=== PATIENT | male | born 1955 | race Caucasian/White ===

== ENCOUNTER 2019-04-10 16:26 | Inpatient (IN) | payer BC ==
[~2019-04-10] VITALS: Ht 172.7 cm; Wt 76.5 kg
[~2019-04-10 16:26] MED LIST: ACET65TA PO; AFRI0.052; CIAL20TA PO; DETR4CAP OR; DIPH2.5L OR; HYDR25TA6 OR; K-TA10TA OR; K-TA10TA2 PO; LEVI20TA39 PO; LISI10TA4 OR; LOMO2.5T PO; LYRI300C OR; MELOPOW OR; NORT25CA2 OR; NORV5TAB PO; ONDA24TA2 OR; PHEN 25 OR; PROBCAP4 PO; PROM-190 PO; TYLETAB15 PO; TYLETAB3 OR; ZOFR4TAB16 PO
[2019-04-10 18:00] VITALS: BP 151/85
[2019-04-10] MEDS ORDERED: HYDROMORPHONE HCL 0.5 MG/ 0.5 ML SYRINGE (J1170 PER 1) IV PRN ×3 (19:15→23:30)
[2019-04-10] MEDS ORDERED: HYDROMORPHONE HCL 0.5 MG/ 0.5 ML SYRINGE (J1170 PER 1) IV ONE (19:30)
[2019-04-10] MEDS ORDERED: ONDANSETRON 4MG/2ML VIAL (J2405) IV PRN (19:45)
[2019-04-10] MEDS ORDERED: GLUCOSE 4 GM CHEW TABLET PO PRN (19:45)
[2019-04-10] MEDS ORDERED: GLUCAGON FOR INJ 1 MG VIAL (J1610) SC PRN (19:45)
[2019-04-10] MEDS ORDERED: DEXTROSE 50% 50 ML SYRINGE IV PRN (19:45)
[2019-04-10 20:23] LABS: HEMATOCRIT 44.6 % (42.0-52.0); HEMOGLOBIN 15.3 g/dl (13.5-17.5); MEAN CORPUSCULAR HEMOGLOBIN 31.2 pg (27.0-33.0); MEAN CORPUSCULAR HGB CONC 34.3 g/dl (32.0-36.5); PLATELET COUNT, AUTOMATED 190 10^3/uL (150-450); WHITE BLOOD COUNT 12.2 10^3/uL (4.0-10.0)
[2019-04-10] MEDS: D5W/0.9% SODIUM CHLORIDE 1,000 ML IV SCH (20:38)
[2019-04-10 20:45] LABS: ALBUMIN 3.7 GM/DL (3.2-5.2); BILIRUBIN,TOTAL 2.1 MG/DL (0.2-1.0); CREATININE FOR GFR 1.45 MG/DL (0.70-1.30); GLOMERULAR FILTRATION RATE 52.3 (>49); POTASSIUM SERUM 3.9 MEQ/L (3.5-5.1); TOTAL PROTEIN 8.2 GM/DL (6.4-8.2)
[2019-04-10] MEDS ORDERED: BISO5TAB5 PO (21:10)
[2019-04-10] MEDS ORDERED: GLIM4TAB PO (21:10)
[2019-04-10] MEDS ORDERED: POTA10TA14 PO (21:10)
[2019-04-10] MEDS ORDERED: PX N0.05 (21:10)
[2019-04-10] MEDS ORDERED: ATOR1TAB19 PO (21:10)
[2019-04-10] MEDS ORDERED: PROM25TA12 PO (21:10)
[2019-04-10] MEDS ORDERED: OMEP20CA3 PO (21:10)
[2019-04-10] MEDS ORDERED: JANU100T PO (21:10)
--- NOTE | 2019-04-10 21:44 | HPEPDOC ---
General Date of Admission April 10, 2019 at 18:00 Date of Service: April 10, 2019 Primary Care Physician: Tarun Armas MD Attending Physician: YURY SIFUENTES MD Chief Complaint The patient is a 63-year-old male admitted with a reason for visit of Bowel Obstruction. Source: Patient, Old records Exam Limitations: No limitations Timing/Duration: 24 hours Associated Symptoms: Nausea, Vomiting History of Present Illness Mr. Moseley is a 63-year-old male who presents to [facility] as a direct transfer from [facility] for small bowel obstruc tion. Patient states that he was in his usual state of health until yesterday when he was outside doing yard work when he was overcome by abdominal pain, abdominal distention with associated nausea and vomiting the contents of his stomach. He noted increased ostomy output of 15-20 liquid non-bloody stools and coupled with vomiting he experiences dehydration in the form of "charley horses" as well as jaw pain. He presented to [facility] and a CT abdomen and pelvis with contrast was obtained which revealed a small bowel obstruction. General surgery was consulted at [facility] and patient was accepted in transfer by the hospitalist team for further evaluation and treatment. Patient states that he has a history of Crohn's disease that was located in his rectum for which he underwent a ileostomy in 1976. He underwent a revision in 2014 due to recurrent monthly episodes of "blockages". Patient states that since the revision in 2014 he only has occasional "blockages" that require a 3-4 day stay at the hospital where he has bowel rest. He improves clinically at which time he is discharged. He follows with [facility] yearly and his most recent check-up was in May 2018. He reports headaches due to his dehydration, occasional episodes of food getting stuck in his throat for which he is evaluated at [facility], left sided sciatic nerve pain for which he gets nerve injections at [facility], some skin irritation around his ostomy for which he used Kenalog spray. Home Medications Scheduled Amlodipine Besylate (Norvasc) 5 Mg Tab, 5 MG PO DAILY, (Reported) Lactobacillus Acidophilus (Probiotic) 1 Cap Cap, 1 CAP PO DAILY, (Reported) Potassium Chloride (K-Tab ER) 10 Meq Tab, 10 MEQ PO BID, (Reported) Scheduled PRN Acetaminophen with Codeine (Tylenol with Codeine #4 Tablet) 1 Tab Tab, 1 TAB PO PRN PRN for PAIN, (Reported) Diphenoxylate HCl/Atropine (Lomotil 2.5-0.025 mg Tablet) 1 Tab Tab, 1 TAB PO PRN PRN for DIARRHEA, (Reported) Ondansetron HCl (Zofran) 4 Mg Tab, 4 MG PO PRN PRN for NAUSEA, (Reported) Oxymetazoline Hcl (Afrin Nasal [place]) 0.05 % Spr, 1 SPRAY NA PRN PRN for ALLERGIES, (Reported) EACH NOSTRIL Promethazine HCl (Promethazine HCl) 25 Mg Tab, 25 MG PO for NAUSEA, (Reported) Tadalafil (Cialis) 20 Mg Tab, 20 MG PO PRN PRN for ERECTILE DYSFUNCTION, (Reported) Miscellaneous Medications Vardenafil HCl (Levitra) 20 Mg Tab, 20 MG PO, (Reported) Allergies Coded Allergies: No Known Drug Allergies (Verified Allergy, Unknown, 04/10/19) Past Medical History Medical History 1. Crohn's disease status post ileostomy 2. GERD 3. Colitis 4. DM 5. HTN 6. Chronic back pain 7. MRSA negative 8. Diarrhea 9. Seasonal allergies 10. ED 11. Hypokalemia 12. DLP 13. Nausea Surgical History 1. Total colectomy with end ileostomy and lysis of adhesions 2. Tonsillectomy 3. Uvula and partial palate excision 4. Septoplasty 5. Left inferior turbinate debridement 6. Esophageal dilatations x3 Family History Father: , 76, Alzheimer's disease Mother: , 86, old age Siblings - Brothers: x2, 65, 55, alive and healthy - Sisters: x2, 72 (RA), 70, alive and healthy Social History * Smoker: former Smoker Alcohol: rarely Drugs: denies Patient is to his of 32 years. Together they have 4 adult children who are all alive and healthy. 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 He used to smoke as a teenage and through college, but quit in his 20s. He consumes alcohol occasionally, usually 2-4 beers or mixed drinks. He does not use illicit drugs. A-FIB/CHADSVASC A-FIB History Current/History of A-Fib/PAF?: No Current PO Anticoag Therapy: No Age/Risk Factor Scoring CHADSVASC: CHADSVASC Response (Comments) Value Age Risk Factor Age < 65 years old 0 Gender Risk Factor Male 0 Hx of CHF No 0 Hx of HTN Yes 1 Hx of Stroke/TIA/or VTE No 0 Hx of Diabetes Yes 1 Hx of Vascular Disease No 0 Total 2 Treatment Treatment ordered: NONE Review of Systems Constitutional: Denies: Chills, Fever, Malaise, Night Sweats, Weakness, Fatigue Eyes: Denies: Pain, Vision change ENT: Reports: Head Aches, Other Symptoms (occasional episodes of food getting stuck in throat); Denies: Dysphagia, Sinus Congestion, Post Nasal Drip Skin: Denies: Rash, Lesions, Jaundice, Bruising Pulmonary: Denies: Dyspnea, Cough, Pleuritic Chest Pain Cardiovascular: Denies: Chest Pain, Palpitations, Orthopnea, Paroxysmal Noc. Dyspnea, Edema Gastrointestinal: Reports: Nausea, Vomiting, Abdominal Pain, Diarrhea; Denies: Melena, Hematochezia Genitourinary: Denies: Dysuria, Frequency, Incontinence, Hematuria Hematologic: Denies: Bruising, Bleeding Excessively Endocrine: Denies: Polydipsia, Polyphagia Musculoskeletal: Denies: Neck Pain, Back Pain, Joint Pain, Muscle Pain Neurological: Denies: Weakness, Numbness Physical Examination General Exam: Positive: Alert, Cooperative, No Acute Distress Eye Exam: Positive: PERRLA, Conjunctiva & lids normal, EOMI; Negative: Sclera icteric, Ptosis ENT Exam: Positive: Atraumatic, Mucous membr. moist/pink, Pharynx Normal, Tongue Midline, Other ENT (NG tube in place); Negative: Pharyngeal Edema, Nares Patent Neck Exam: Positive: Supple, +2 carotid pulse wo bruit; Negative: JVD, thyromegaly, Lymphadenopathy Chest Exam: Positive: Clear to auscultation, Normal air movement; Negative: Rales, Rhonchi, Wheezing, Diminished Heart Exam: Positive: Tachycardic, Regular Rhythm, Normal S1, Normal S2; Negative: Rate Normal, Gallops, Murmurs, Rubs Telemetry: Positive: Sinus, Tachycardia Abdomen Exam: Positive: BS Hypoactive, Soft, Tenderness (left lower quadrant), Other (right sided ostomy with ostomy receptacle in place with brown liquid stool in receptacle); Negative: Normal bowel sounds, Hepatospenomegaly, Mass, Hernia Extremity Exam: Negative: Clubbing, Cyanosis, Edema, Normal pulses, Tenderness, Swelling Skin Exam: Negative: Rash, Lesion Neuro Exam: Positive: Normal Speech Psych Exam: Positive: Oriented x 3 Vital Signs Vital Signs Date Time Temp Pulse Resp B/P (MAP) Pulse Ox O2 Delivery O2 Flow Rate FiO2 04/10/19 20:37 16 04/10/19 18:00 98.6 128 151/85 (107) 97 Weight (kg): 76.8 Laboratory Data Labs 24H Laboratory Tests 2 04/10/19 20:17: Nucleated Red Blood Cells % (auto) 0.0 CBC/BMP Laboratory Tests 04/10/19 20:17 Red Blood Count 4.90, Mean Corpuscular Volume 91.0, Mean Corpuscular Hemoglobin 31.2, Mean Corpuscular Hemoglobin Concent 34.3, Red Cell Distribution Width 13.2 Plan / VTE VTE Prophylaxis Ordered?: Yes (Lovenox 40mg SQ daily) Plan Plan 1. Partial bowel obstruction - NPO for bowel rest. Patient may have mouth sponge. NG tube on IS. IV fluids D5W/0.9% NS @ 100 MLS/HR. Pain medication in the form of Dilaudid with respiratory status management. General surgery on consult. KUB in the morning. Imaging from [facility] reviewed with general surgeon. Zofran and Promethazine for nausea as needed. Hold Lomotil. Daily BMP and CBC. 2. Tachycardia - EKG. Likely physiologic response to dehydration and bowel obstruction. 3. DM - Hold Glimepiride and Januvia. SSI Q6H, FSBS Q6H, hypoglycemic protocol. 4. HTN - Continue Amlodipine and Bisoprolol. 6. DLP - Hold Atrovastatin. 7. Seasonal allergies - Hold Oxymetazoline. 8. Chronic back pain - Hold Tylenol with Codeine. 9. ED - Hold Tadalafil. 10. GERD - Hold Omeprazole. 11. DVT PPx - Lovenox 40mg SQ daily and TEDs. Disposition Admit: Med/Surg Anticipated hospitalization: 2 nights Attending: Consult: General surgery - Dr. Aguilera IVF: Continue Diet: Make NPO Activity: Continue Current Diagnostics: Check Labs, Repeat Labs in AM, Xrays (KUB) Anticipated Discharge: Home ALEX MERA DO April 10, 2019 21:44
[2019-04-10] MEDS ORDERED: PROMETHAZINE INJ 25 MG/ML VIAL (J2550) IV PRN (21:45)
[2019-04-10 22:00] VITALS: BP 138/90
[2019-04-11] MEDS: HumaLOG INSULIN (NovoLOG) PER UNIT SC SCH ×4 (00:29→17:29)
[2019-04-11] MEDS: HYDROMORPHONE HCL 0.5 MG/ 0.5 ML SYRINGE (J1170 PER 1) IV PRN ×5 (02:48→22:11)
[2019-04-11 05:49] LABS: BASO % 0.3 % (0.0-1.0); EOS # 0.1 10^3/uL (0.0-0.50); EOS % 0.9 % (0.0-3.0); HEMATOCRIT 43.3 % (42.0-52.0); HEMOGLOBIN 15.1 g/dl (13.5-17.5); LYMPH # 1.6 10^3/uL (1.5-4.5); LYMPH % 17.5 % (24.0-44.0); MEAN CORPUSCULAR HEMOGLOBIN 31.9 pg (27.0-33.0); MEAN CORPUSCULAR HGB CONC 34.9 g/dl (32.0-36.5); MEAN CORPUSCULAR VOLUME 91.5 fl (80.0-96.0); MONO # 0.9 10^3/uL (0.0-0.8); NEUTROPHILS # 6.5 10^3/uL (1.8-7.7); PLATELET COUNT, AUTOMATED 168 10^3/uL (150-450); RED BLOOD COUNT 4.73 10^6/uL (4.30-6.10); WHITE BLOOD COUNT 9.2 10^3/uL (4.0-10.0)
[2019-04-11 06:00] VITALS: BP 139/89
[2019-04-11] MEDS: D5W/0.9% SODIUM CHLORIDE 1,000 ML IV SCH ×2 (06:04→15:30)
[2019-04-11 06:09] LABS: BLOOD UREA NITROGEN 19 MG/DL (7-18); CALCIUM LEVEL 8.5 MG/DL (8.8-10.2); CARBON DIOXIDE LEVEL 29 MEQ/L (21-32); CHLORIDE LEVEL 103 MEQ/L (98-107); CREATININE FOR GFR 1.13 MG/DL (0.70-1.30); GLOMERULAR FILTRATION RATE > 60.0 (>49); GLUCOSE, FASTING 182 MG/DL (70-100); MAGNESIUM LEVEL 2.3 MG/DL (1.8-2.4); POTASSIUM SERUM 3.7 MEQ/L (3.5-5.1); SODIUM LEVEL 139 MEQ/L (136-145)
[2019-04-11] MEDS: BISOPROLOL FUMARATE 5 MG TAB PO SCH (08:10)
[2019-04-11] MEDS: amLODIPine 5 MG TAB PO SCH (08:11)
[2019-04-11] MEDS: ENOXAPARIN 40 MG/0.4 ML SYRINGE (J1650) SC SCH (08:12)
--- NOTE | 2019-04-11 08:16 | REP ---
KUB: Single view. History: Partial small bowel obstruction. No comparison study. Findings: There are clips and sutures in the pelvis and in the upper abdomen in the midline. The bowel gas pattern is essentially gasless. Flank stripes and psoas margins are intact. No evidence of large or small bowel dilation is seen. No acute bony abnormality is seen. There are degenerative disc changes in the lumbar spine. Impression: Essentially gasless abdomen. Postoperative changes. Electronically Signed by Juan Garcia MD 04/11/2019 08:07 A
--- NOTE | 2019-04-11 10:53 | IPNPDOC ---
Text Note Date of Service The patient was seen on 04/11/19. NOTE Subjective: Patient seen and examined at bedside. States he is feeling better today, still with some nausea and abdominal pain, but improved. Complains of discomfort with his NG tube. Objective: General: NAD, lying comfortably in bed HEENT: NC/AT, NG tube in place draining rust colored fluid Lungs: CTA B/L Heart: +S1S2, RRR Abd: soft, hypoactive BS, mild LLQ tenderness, ileostomy in place Ext: no edema A/P: 63-year-old male direct admit from [facility] for small bowel obstruction, originally presented for increased output from ostomy, headaches, generalized pain ('swapnil horse') and vomiting, with PMHx Crohn's s/p ileostomy 1977 at [facility], with annual follow up. #SBO - follow as per surgery - assistance appreciated - NPO/IVF/NG tube - pain control - dilaudid - KUB noted - anti-emetic - zofran/promethazine #sinus tachy -Likely physiologic response to dehydration and bowel obstruction. #DM - Hold Glimepiride and Januvia. SSI Q6H, FSBS Q6H, hypoglycemic protocol. #HTN - Continue Amlodipine and Bisoprolol. #DLP - Hold Atrovastatin. #Seasonal allergies - Hold Oxymetazoline. #Chronic back pain - Hold Tylenol with Codeine. # ED - Hold Tadalafil. # GERD - Hold Omeprazole. #DVT PPx - Lovenox 40mg SQ daily and TEDs. VS,Fishbone, I+O VS, Fishbone, I+O Laboratory Tests 04/10/19 20:17 Red Blood Count 4.90, Mean Corpuscular Volume 91.0, Mean Corpuscular Hemoglobin 31.2, Mean Corpuscular Hemoglobin Concent 34.3, Red Cell Distribution Width 13.2, Calcium Level 9.0, Aspartate Amino Transf (AST/SGOT) 28, Alanine Aminotransferase (ALT/SGPT) 56, Alkaline Phosphatase 73, Total Bilirubin 2.1 H, Total Protein 8.2, Albumin 3.7 04/11/19 05:20 Red Blood Count 4.73, Mean Corpuscular Volume 91.5, Mean Corpuscular Hemoglobin 31.9, Mean Corpuscular Hemoglobin Concent 34.9, Red Cell Distribution Width 13.2, Calcium Level 8.5 L, Neutrophils (%) (Auto) 71.0 H, Lymphocytes (%) (Auto) 17.5 L, Monocytes (%) (Auto) 10.0 H, Eosinophils (%) (Auto) 0.9, Basophils (%) (Auto) 0.3, Neutrophils # (Auto) 6.5, Lymphocytes # (Auto) 1.6, Monocytes # (Auto) 0.9 H, Eosinophils # (Auto) 0.1, Basophils # (Auto) 0.0 Vital Signs Date Time Temp Pulse Resp B/P (MAP) Pulse Ox O2 Delivery O2 Flow Rate FiO2 04/11/19 08:21 18 04/11/19 08:10 100 140/78 04/11/19 06:00 98.9 96 I&O- Last 24 Hours up to 6 AM 04/11/19 06:00 Intake Total 950 ml Output Total 1025 ml Balance -75 ml PEARL STODDARD MD April 11, 2019 10:53
--- NOTE | 2019-04-11 12:47 | IPN ---
DATE: 04/11/2019 Patient overall seems to be feeling better today than he was yesterday. He looks more comfortable than he was last night and complained of less crampy abdominal pain. His nasogastric (NG) tube has had a significant amount of output still overnight. His ostomy is still putting output, but less output out of his ileostomy at this time. He has been afebrile, and on his physical exam his abdomen is still distended but it is not as bad as yesterday. He still has ostomy output but it is mostly air. NG tube is still dark bilious fluid. IMPRESSION/PLAN: 1. Patient has some improvement of his bowel obstruction. Although, I do not feel that it is complete. 2. I do feel that it is improved and will see how he does over the ensuing 24-48 hours. If he is having continued improvement but we are questioning whether he has resolution or not, I do feel it would be reasonable to either proceed with clamping his tube, checking residuals starting tomorrow or possibly proceeding with an upper GI with small-bowel follow-through for further evaluation. We will see how he is doing overnight and determine our next step based on his progress.
--- NOTE | 2019-04-11 12:54 | CR ---
DATE OF CONSULTATION: 04/10/2019 REASON FOR CONSULTATION: Small bowel obstruction. BRIEF HISTORY OF PRESENT ILLNESS: The patient is a 63-year-old individual who has had a total colectomy with ileostomy for Crohn's disease in the remote past. Has not been treated for Crohn's disease since that time given that this was rectal only. In any case, he has been seeing someone at the [facility] for the last many years and last year was his last visit. He has had routine followup evaluations and at one point had a recurrence of small obstruction that required operative intervention, had lysis of adhesions, and I am not sure exactly the type of operation he had but was found to have an internal hernia and it sounds as though he may have had a stenosis that was resolved and it is hard to tell if it was a stricturoplasty or a resection. In any case, he is here now for this acute onset of crampy abdominal pain, nausea, distention and evidence of obstruction on CAT scan. PAST MEDICAL HISTORY: Significant for: 1. History of gastroesophageal reflux disease (GERD). 2. History of diabetes mellitus. 3. History of chronic back pain. 4. History of diarrhea. 5. History of erectile dysfunction. 6. History of DLP. 7. History of nausea. 8. History of tonsillectomy, uvula and partial palate excision. 9. Septoplasty. 10. Esophageal dilatations. MEDICATIONS: Include: - amlodipine - lactobacillus - potassium - as needed Tylenol with codeine - Lomotil - Zofran - Afrin - promethazine - Cialis PHYSICAL EXAMINATION: Reveals a 63-year-old male who looks stated age. HEENT: Unremarkable. NECK: Supple without adenopathy. LUNGS: Clear to auscultation. HEART: Regular. ABDOMEN: Softly distended, nontender, no guarding. No rebound. No peritoneal signs are appreciated. He does have some discomfort with palpation, but it is not significant. There are definitely no peritoneal signs. His CAT scan was reviewed and reviewed this with the resident admitting the patient. We discussed that he has a small bowel obstruction, I am not seeing any evidence of small bowel inflammation and initially when he was transferred over from [place] the question was whether this was a Crohn's exacerbation versus a mechanical small bowel obstruction without any inflammatory component that I can appreciate on his CAT scan. I feel that this is most likely to be a mechanical bowel obstruction and thus the treatment is as typically performed for small obstructions without evidence of peritonitis, nasogastric tube decompression, nothing by mouth, and IV fluids. We will see what the followup KUB reveals tomorrow and determine our next step based on his overall clinical progress.
[2019-04-11 14:00] VITALS: BP 142/102
[2019-04-11 22:00] VITALS: BP 130/92
[2019-04-12] MEDS: HumaLOG INSULIN (NovoLOG) PER UNIT SC SCH ×4 (00:14→17:05)
[2019-04-12 01:10] VITALS: O2SAT 98
[2019-04-12] MEDS: HYDROMORPHONE HCL 0.5 MG/ 0.5 ML SYRINGE (J1170 PER 1) IV PRN ×4 (02:27→21:46)
[2019-04-12] MEDS: D5W/0.9% SODIUM CHLORIDE 1,000 ML IV SCH ×2 (05:50→20:31)
[2019-04-12 06:00] VITALS: BP_SYST 148; BP_SYST 155; BP_DIAS 83; BP_DIAS 95
[2019-04-12 06:11] LABS: BASO % 0.3 % (0.0-1.0); EOS # 0.1 10^3/uL (0.0-0.50); EOS % 0.9 % (0.0-3.0); HEMATOCRIT 41.6 % (42.0-52.0); HEMOGLOBIN 14.2 g/dl (13.5-17.5); LYMPH # 1.7 10^3/uL (1.5-4.5); LYMPH % 18.3 % (24.0-44.0); MEAN CORPUSCULAR HEMOGLOBIN 30.7 pg (27.0-33.0); MEAN CORPUSCULAR HGB CONC 34.1 g/dl (32.0-36.5); MEAN CORPUSCULAR VOLUME 89.8 fl (80.0-96.0); MONO # 1.2 10^3/uL (0.0-0.8); MONO % 12.5 % (0.0-5.0); NEUTROPHILS # 6.3 10^3/uL (1.8-7.7); NEUTROPHILS % 67.8 % (36.0-66.0); PLATELET COUNT, AUTOMATED 150 10^3/uL (150-450); RED BLOOD COUNT 4.63 10^6/uL (4.30-6.10); WHITE BLOOD COUNT 9.3 10^3/uL (4.0-10.0)
[2019-04-12 06:31] LABS: BLOOD UREA NITROGEN 11 MG/DL (7-18); CALCIUM LEVEL 8.8 MG/DL (8.8-10.2); CARBON DIOXIDE LEVEL 31 MEQ/L (21-32); CHLORIDE LEVEL 104 MEQ/L (98-107); CREATININE FOR GFR 0.94 MG/DL (0.70-1.30); GLOMERULAR FILTRATION RATE > 60.0 (>49); GLUCOSE, FASTING 157 MG/DL (70-100); POTASSIUM SERUM 3.2 MEQ/L (3.5-5.1); SODIUM LEVEL 140 MEQ/L (136-145)
[2019-04-12] MEDS ORDERED: POTASSIUM CHLORIDE 10 MEQ SR TABLET PO ONE (07:45)
[2019-04-12 08:28] LABS: MAGNESIUM LEVEL 2.3 MG/DL (1.8-2.4)
[2019-04-12] MEDS: BISOPROLOL FUMARATE 5 MG TAB PO SCH (08:34)
[2019-04-12] MEDS: amLODIPine 5 MG TAB PO SCH (08:34)
[2019-04-12] MEDS: ENOXAPARIN 40 MG/0.4 ML SYRINGE (J1650) SC SCH (08:35)
--- NOTE | 2019-04-12 09:32 | ECGEPIP ---
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
--- NOTE | 2019-04-12 11:26 | REP ---
It abdominal series: Three views. History: Small bowel obstruction. Comparison study: April 11, 2019. Findings: Upright chest radiograph shows EKG monitoring electrodes. The lungs are symmetrically aerated and there is no evidence of infiltrate. No free subdiaphragmatic air is seen. Heart size is normal. Supine and erect views of the abdomen demonstrate a moderately dilated air filled loop of small bowel in the left upper quadrant and a mildly prominent predominantly fluid filled loop of small intestine in the central abdomen. There are clips and sutures in the pelvis and in the upper abdomen. Flank stripes and psoas margins are intact. No mass organomegaly is seen. A few nondilated loops of bowel are seen in the pelvis. Impression: There are dilated proximal small bowel loops in the upper abdomen consistent with a history of small bowel obstruction. There is some gas in nondilated distal small bowel loops in the pelvis. No evidence of free air. Electronically Signed by Juan Garcia MD 04/12/2019 11:17 A
--- NOTE | 2019-04-12 13:09 | IPNPDOC ---
Text Note Date of Service The patient was seen on 04/12/19. NOTE Subjective: Patient seen and examined at bedside. States he is feeling better today, still with some nausea and abdominal pain, but improved. His NG tube is out, unintentionally. Objective: General: NAD, lying comfortably in bed HEENT: NC/AT Lungs: CTA B/L Heart: +S1S2, RRR Abd: soft, +BS, ileostomy in place Ext: no edema A/P: 63-year-old male direct admit from [facility] for small bowel obstruction, originally presented for increased output from ostomy, headaches, generalized pain ('swapnil horse') and vomiting, with PMHx Crohn's s/p ileostomy 1977 at [facility], with annual follow up. #SBO - follow as per surgery - assistance appreciated - NG tube discontinued - upper GI series for today - pain control - dilaudid - anti-emetic - zofran/promethazine #sinus tachy -Likely physiologic response to dehydration and bowel obstruction. #DM - Hold Glimepiride and Januvia. SSI Q6H, FSBS Q6H, hypoglycemic protocol. #HTN - Continue Amlodipine and Bisoprolol. #DLP - Hold Atrovastatin. #Seasonal allergies - Hold Oxymetazoline. #Chronic back pain - Hold Tylenol with Codeine. # ED - Hold Tadalafil. # GERD - Hold Omeprazole. #DVT PPx - Lovenox 40mg SQ daily and TEDs. VS,Fishbone, I+O VS, Fishbone, I+O Laboratory Tests 04/12/19 05:26 Red Blood Count 4.63, Mean Corpuscular Volume 89.8, Mean Corpuscular Hemoglobin 30.7, Mean Corpuscular Hemoglobin Concent 34.1, Red Cell Distribution Width 12.7, Neutrophils (%) (Auto) 67.8 H, Lymphocytes (%) (Auto) 18.3 L, Monocytes (%) (Auto) 12.5 H, Eosinophils (%) (Auto) 0.9, Basophils (%) (Auto) 0.3, Neutrophils # (Auto) 6.3, Lymphocytes # (Auto) 1.7, Monocytes # (Auto) 1.2 H, Eosinophils # (Auto) 0.1, Basophils # (Auto) 0.0, Calcium Level 8.8 Vital Signs Date Time Temp Pulse Resp B/P (MAP) Pulse Ox O2 Delivery O2 Flow Rate FiO2 04/12/19 08:41 15 04/12/19 08:34 85 155/95 04/12/19 08:31 96 04/12/19 06:00 98.6 04/12/19 01:10 Room Air I&O- Last 24 Hours up to 6 AM 04/12/19 06:00 Intake Total 840 ml Output Total 2600 ml Balance -1760 ml PEARL STODDARD MD April 12, 2019 13:08
[2019-04-12 14:00] VITALS: BP 154/95; O2SAT 98
[2019-04-12] MEDS ORDERED: E-Z-PAQUE 96% w/w SUSP 176GM BTL As Ordered ONE (14:53)
--- NOTE | 2019-04-12 16:42 | REP ---
Upper GI small bowel follow-through study: History: Question partial small bowel obstruction. Remote history of Crohn disease status post total colectomy and permanent ileostomy. History of recurrent small bowel obstruction. Findings: Comparison is made with today's plain film showing a few dilated small bowel loops. The esophagus shows tertiary contractions. There is a small sliding-type hiatal hernia. Reflux was not witnessed. The stomach is unremarkable showing normal gastric folds. No gastric obstruction is seen pylorus is smooth. Duodenal bulb is fully distensible. Initial views of the descending duodenum show mild transient dilation, however subsequent images demonstrate a normal caliber duodenum and a normal position of the ligament of Treitz. Jejunal and ileal loops are opacified and on the 20-minute film there is early contrast in the ileostomy bag. Fluoroscopically obtained spot radiographs show no evidence of mural thickening,, fold thickening, stricture, or obstruction. Impression: No evidence of small bowel obstruction. Contrast transited to the ileostomy bag after 20 minutes. No other complications seen. Fluoroscopy time is 1.3 minutes. Electronically Signed by Juan Garcia MD 04/12/2019 04:33 P
[2019-04-12 20:30] VITALS: O2SAT 100
[2019-04-12 22:00] VITALS: BP 136/82
[2019-04-13] MEDS: HumaLOG INSULIN (NovoLOG) PER UNIT SC SCH ×4 (00:14→17:23)
[2019-04-13] MEDS: HYDROMORPHONE HCL 0.5 MG/ 0.5 ML SYRINGE (J1170 PER 1) IV PRN ×4 (05:19→21:50)
[2019-04-13 06:00] VITALS: BP 137/81
[2019-04-13 06:35] LABS: BASO % 0.2 % (0.0-1.0); EOS # 0.1 10^3/uL (0.0-0.50); EOS % 0.9 % (0.0-3.0); HEMATOCRIT 38.6 % (42.0-52.0); HEMOGLOBIN 13.4 g/dl (13.5-17.5); LYMPH # 1.4 10^3/uL (1.5-4.5); LYMPH % 15.8 % (24.0-44.0); MEAN CORPUSCULAR HEMOGLOBIN 30.9 pg (27.0-33.0); MEAN CORPUSCULAR HGB CONC 34.7 g/dl (32.0-36.5); MEAN CORPUSCULAR VOLUME 89.1 fl (80.0-96.0); MONO # 1.2 10^3/uL (0.0-0.8); MONO % 13.6 % (0.0-5.0); NEUTROPHILS # 6.2 10^3/uL (1.8-7.7); NEUTROPHILS % 69.1 % (36.0-66.0); PLATELET COUNT, AUTOMATED 149 10^3/uL (150-450); RED BLOOD COUNT 4.33 10^6/uL (4.30-6.10); WHITE BLOOD COUNT 8.9 10^3/uL (4.0-10.0)
[2019-04-13 06:58] LABS: BLOOD UREA NITROGEN 6 MG/DL (7-18); CALCIUM LEVEL 8.6 MG/DL (8.8-10.2); CARBON DIOXIDE LEVEL 28 MEQ/L (21-32); CHLORIDE LEVEL 104 MEQ/L (98-107); CREATININE FOR GFR 0.89 MG/DL (0.70-1.30); GLOMERULAR FILTRATION RATE > 60.0 (>49); GLUCOSE, FASTING 184 MG/DL (70-100); SODIUM LEVEL 139 MEQ/L (136-145)
[2019-04-13] MEDS ORDERED: POTASSIUM CHLORIDE 10 MEQ SR TABLET PO ONE (07:30)
[2019-04-13 08:23] VITALS: BP 162/92
[2019-04-13] MEDS: BISOPROLOL FUMARATE 5 MG TAB PO SCH (08:28)
[2019-04-13] MEDS: amLODIPine 5 MG TAB PO SCH (08:29)
[2019-04-13] MEDS: ENOXAPARIN 40 MG/0.4 ML SYRINGE (J1650) SC SCH (08:30)
[2019-04-13] MEDS ORDERED: DEXTROSE 50% 50 ML SYRINGE IV PRN (09:00)
[2019-04-13] MEDS ORDERED: GLUCAGON FOR INJ 1 MG VIAL (J1610) SC PRN (09:00)
[2019-04-13] MEDS ORDERED: GLUCOSE 4 GM CHEW TABLET PO PRN (09:00)
[2019-04-13] MEDS: D5W/0.9% SODIUM CHLORIDE 1,000 ML IV SCH (09:33)
--- NOTE | 2019-04-13 11:26 | IPNPDOC ---
Text Note Date of Service The patient was seen on 04/13/19. NOTE Subjective: Patient seen and examined at bedside. States he is feeling better today, still with some nausea and abdominal pain, but improved. His NG tube is out, unintentionally. Objective: General: NAD, lying comfortably in bed HEENT: NC/AT Lungs: CTA B/L Heart: +S1S2, RRR Abd: soft, +BS, ileostomy in place Ext: no edema A/P: 63-year-old male direct admit from [facility] for small bowel obstruction, originally presented for increased output from ostomy, headaches, generalized pain ('swapnil horse') and vomiting, with PMHx Crohn's s/p ileostomy 1977 at [facility], with annual follow up. #SBO - follow as per surgery - assistance appreciated - NG tube discontinued - upper GI series WNL - pain control - still requiring IV dilaudid - anti-emetic - zofran/promethazine - started diet - continue to follow clinically #sinus tachy -Likely physiologic response to dehydration and bowel obstruction. #DM - Hold Glimepiride and Januvia. SSI Q6H, FSBS Q6H, hypoglycemic protocol. #HTN - Continue Amlodipine and Bisoprolol. #DLP - Hold Atrovastatin. #Seasonal allergies - Hold Oxymetazoline. #Chronic back pain - Hold Tylenol with Codeine. # ED - Hold Tadalafil. # GERD - Hold Omeprazole. #DVT PPx - Lovenox 40mg SQ daily and TEDs Dispo: trial of diet today, continue IV analgesic/anti-emetic VS,Fishbone, I+O VS, Fishbone, I+O Laboratory Tests 04/13/19 05:26 Red Blood Count 4.33, Mean Corpuscular Volume 89.1, Mean Corpuscular Hemoglobin 30.9, Mean Corpuscular Hemoglobin Concent 34.7, Red Cell Distribution Width 12.5, Neutrophils (%) (Auto) 69.1 H, Lymphocytes (%) (Auto) 15.8 L, Monocytes (%) (Auto) 13.6 H, Eosinophils (%) (Auto) 0.9, Basophils (%) (Auto) 0.2, N eutrophils # (Auto) 6.2, Lymphocytes # (Auto) 1.4 L, Monocytes # (Auto) 1.2 H, Eosinophils # (Auto) 0.1, Basophils # (Auto) 0.0, Calcium Level 8.6 L Vital Signs Date Time Temp Pulse Resp B/P (MAP) Pulse Ox O2 Delivery O2 Flow Rate FiO2 04/13/19 09:43 18 97 04/13/19 08:28 106 162/92 04/13/19 06:00 97.9 04/12/19 20:30 Room Air 0.0 I&O- Last 24 Hours up to 6 AM 04/13/19 06:00 Intake Total 3280 ml Output Total 2900 ml Balance 380 ml PEARL STODDARD MD April 13, 2019 11:26
[2019-04-13 14:00] VITALS: BP 120/69
[2019-04-13] MEDS ORDERED: ONDANSETRON 4 MG TAB (S0181) PO PRN (14:15)
[2019-04-13] MEDS ORDERED: ACETAMINOPH W/CODEINE #3 TAB UD PO PRN (14:15)
[2019-04-13] MEDS ORDERED: HYDROMORPHONE HCL 0.5 MG/ 0.5 ML SYRINGE (J1170 PER 1) IV PRN (16:15)
[2019-04-13] MEDS ORDERED: PERCOCET 5MG/325MG TAB PO PRN ×2 (16:45)
[2019-04-13] MEDS ORDERED: HumaLOG INSULIN (NovoLOG) PER UNIT SC SCH (21:00)
[2019-04-13 22:00] VITALS: BP 124/69
[2019-04-14 05:57] LABS: BASO % 0.5 % (0.0-1.0); EOS # 0.1 10^3/uL (0.0-0.50); EOS % 1.5 % (0.0-3.0); HEMATOCRIT 36.6 % (42.0-52.0); HEMOGLOBIN 13.1 g/dl (13.5-17.5); LYMPH # 1.6 10^3/uL (1.5-4.5); LYMPH % 18.6 % (24.0-44.0); MEAN CORPUSCULAR HEMOGLOBIN 31.2 pg (27.0-33.0); MEAN CORPUSCULAR HGB CONC 35.8 g/dl (32.0-36.5); MEAN CORPUSCULAR VOLUME 87.1 fl (80.0-96.0); MONO # 1.3 10^3/uL (0.0-0.8); NEUTROPHILS # 5.4 10^3/uL (1.8-7.7); NEUTROPHILS % 63.9 % (36.0-66.0); PLATELET COUNT, AUTOMATED 143 10^3/uL (150-450); WHITE BLOOD COUNT 8.4 10^3/uL (4.0-10.0)
[2019-04-14 06:00] VITALS: BP 135/82
[2019-04-14 06:09] LABS: BLOOD UREA NITROGEN 8 MG/DL (7-18); CALCIUM LEVEL 8.6 MG/DL (8.8-10.2); CARBON DIOXIDE LEVEL 28 MEQ/L (21-32); CHLORIDE LEVEL 106 MEQ/L (98-107); CREATININE FOR GFR 0.85 MG/DL (0.70-1.30); GLOMERULAR FILTRATION RATE > 60.0 (>49); GLUCOSE, FASTING 172 MG/DL (70-100); POTASSIUM SERUM 3.4 MEQ/L (3.5-5.1); SODIUM LEVEL 139 MEQ/L (136-145)
[2019-04-14 07:52] VITALS: BP 130/82
[2019-04-14] MEDS: amLODIPine 5 MG TAB PO SCH (07:52)
[2019-04-14] MEDS: ENOXAPARIN 40 MG/0.4 ML SYRINGE (J1650) SC SCH (07:53)
[2019-04-14] MEDS: BISOPROLOL FUMARATE 5 MG TAB PO SCH (07:53)
[2019-04-14] MEDS: HumaLOG INSULIN (NovoLOG) PER UNIT SC SCH (07:54)
[2019-04-14] MEDS ORDERED: POTASSIUM CHLORIDE 10 MEQ SR TABLET PO ONE (08:00)
[2019-04-14 08:06] LABS: MAGNESIUM LEVEL 2.2 MG/DL (1.8-2.4)
[2019-04-14 08:55] VITALS: O2SAT 98
--- NOTE | 2019-04-14 09:17 | IPN ---
DATE: 04/13/2019 The patient overall had an upper GI that I ordered yesterday. I reviewed that and that was normal. Thus, yesterday I ordered him a clear liquid diet last night and then a regular diet this morning. He has had breakfast and lunch and he has some minimal crampy abdominal pain, but otherwise he is having ostomy output and has had a soft abdomen. He has had no nausea and no vomiting. IMPRESSION AND PLAN: Small-bowel obstruction that has resolved at this time. He may have some mild crampy abdominal pain associated with the resolution of the obstruction/edema that was associated with this obstruction and this may occur for the next several days, but at this point surgically he is okay for discharge from my standpoint. He can follow up with his primary care provider as an outpatient and would recommend routine followup with his surgeon at [facility]. Otherwise, I will be signing off. Please contact me if you have any questions or concerns.
[2019-04-14] MEDS ORDERED: PERCOCET PO (09:39)
--- NOTE | 2019-04-14 11:46 | DS.PDOC ---
Discharge Summary General Date of Admission April 10, 2019 at 18:00 Date of Discharge 04/14/19 Specialist/Consultants Involve: Ruddy Aguilera Jr Discharge Summary PROCEDURES PERFORMED DURING STAY: Upper GI series DISCHARGE DIAGNOSES: #SBO in the setting of Crohn's disease #sinus tachy #DM #HTN #DLP #Seasonal allergies #Chronic back pain # ED # GERD COMPLICATIONS/CHIEF COMPLAINT: Bowel Obstruction. HISTORY OF PRESENT ILLNESS: 63-year-old male who presented as a direct transfer from [facility] for small bowel obstruction. Patient stated that he was in his usual state of health until one day prior, when he was overcome by abdominal pain, abdominal distention with associated nausea and vomiting. He noted increased ostomy output of 15-20 liquid non-bloody stools and coupled with vomiting he experiences dehydration in the form of "charley horses" as well as jaw pain. He presented to [facility] and a CT abdomen and pelvis with contrast was obtained which revealed a small bowel obstruction. General surgery was consulted at [facility] and patient was accepted in transfer by the hospitalist team for further evaluation and treatment. Patient states that he has a history of Crohn's disease that was located in his rectum for which he underwent a ileostomy in 1976. He underwent a revision in 2014 due to recurrent monthly episodes of "blockages". Patient states that since the revision in 2014 he only has occasional "blockages" that require a 3-4 day stay at the hospital where he has bowel rest. He improves clinically at which time he is discharged. He follows with [facility] yearly and his most recent check-up was in May 2018. He reported headaches due to his dehydration, occasional episodes of food getting stuck in his throat for which he is evaluated at [facility], left sided sciatic nerve pain for which he gets nerve injections at [facility], some skin irritation around his ostomy for which he used Kenalog spray. HOSPITAL COURSE: Patient admitted for further evaluation and treatment. He was made NPO, with an NG tube place, and surgical consultation. His pain improved, and trialed on a diet. His NG tube was unintentionally displace, and then left out. He was still requiring signficant pain medication in the form of intravenous dilaudid, but was requesting discharge. He remained in the hospital, and was agreeable to transitioning to oral pain meds. The following day, on day of discharge, he stated his pain had much improved and was eager to be discharged home. Discussed with surgery and agreeable for discharge home with outpatient follow up. Patient states he has been through these episodes many many times and is well aware of how to manage at home, and risks of leaving hospital before it is entirely resolved. DISCHARGE MEDICATIONS: Please see below. ALLERGIES: Please see below. PHYSICAL EXAMINATION ON DISCHARGE: VITAL SIGNS: Please see below. General: NAD, lying comfortably in bed HEENT: NC/AT Lungs: CTA B/L Heart: +S1S2, RRR Abd: soft, +BS, ileostomy in place Ext: no edema LABORATORY DATA: Please see below. ACTIVITY: [As tolerated]. DIET: As tolerated, 2 gram sodium, low fat low cholesterol, carb consistent DISPOSITION: 01 Home, Self-Care. DISCHARGE INSTRUCTIONS: 1. Follow up with PCP in 3-5 days 2. Follow up with surgery local or [facility] in 1-2 weeks. DISCHARGE CONDITION: [Stable]. TIME SPENT ON DISCHARGE: 35 minutes. Vital Signs/I&Os Vital Signs Date Time Temp Pulse Resp B/P (MAP) Pulse Ox O2 Delivery O2 Flow Rate FiO2 04/14/19 08:55 98 Room Air 04/14/19 07:52 83 130/82 04/14/19 06:00 97.8 15 04/12/19 20:30 0.0 I&O- Last 24 Hours up to 6 AM 04/14/19 06:00 Intake Total 1270 ml Output Total 825 ml Balance 445 ml Laboratory Data Labs 24H Laboratory Tests 2 04/13/19 11:54: Bedside Glucose (Misc Panel) 160H 04/13/19 17:05: Bedside Glucose (Misc Panel) 185H 04/13/19 19:49: Bedside Glucose (Misc Panel) 200H 04/14/19 05:19: Immature Granulocyte % (Auto) 0.5, White Blood Count 8.4, Red Blood Count 4.20L, Hemoglobin 13.1L, Hematocrit 36.6L, Mean Corpuscular Volume 87.1, Mean Corpuscular Hemoglobin 31.2, Mean Corpuscular Hemoglobin Concent 35.8, Red Cell Distribution Width 12.3, Platelet Count 143L, Neutrophils (%) (Auto) 63.9, Lymphocytes (%) (Auto) 18.6L, Monocytes (%) (Auto) 15.0H, Eosinophils (%) (Auto) 1.5, Basophils (%) (Auto) 0.5, Neutrophils # (Auto) 5.4, Lymphocytes # (Auto) 1 .6, Monocytes # (Auto) 1.3H, Eosinophils # (Auto) 0.1, Basophils # (Auto) 0.0, Nucleated Red Blood Cells % (auto) 0.0, Anion Gap 5L, Glomerular Filtration Rate > 60.0, Blood Urea Nitrogen 8, Creatinine 0.85, Sodium Level 139, Potassium Level 3.4L, Chloride Level 106, Carbon Dioxide Level 28, Calcium Level 8.6L, Magnesium Level 2.2 CBC/BMP Laboratory Tests 04/14/19 05:19 Red Blood Count 4.20 L, Mean Corpuscular Volume 87.1, Mean Corpuscular Hemoglobin 31.2, Mean Corpuscular Hemoglobin Concent 35.8, Red Cell Distribution Width 12.3, Neutrophils (%) (Auto) 63.9, Lymphocytes (%) (Auto) 18.6 L, Monocytes (%) (Auto) 15.0 H, Eosinophils (%) (Auto) 1.5, Basophils (%) (Auto) 0.5, Neutrophils # (Auto) 5.4, Lymphocytes # (Auto) 1.6, Monocytes # (Auto) 1.3 H, Eosinophils # (Auto) 0.1, Basophils # (Auto) 0.0, Calcium Level 8.6 L FSBS Laboratory Tests Test 04/13/19 11:54 04/13/19 17:05 04/13/19 19:49 Range/Units Bedside Glucose (Misc Panel) 160 185 200 80-115 MG/DL Discharge Medications Scheduled Amlodipine Besylate (Norvasc) 5 Mg Tab, 5 MG PO DAILY, (Reported) Atorvastatin Calcium (Atorvastatin Calcium) 10 Mg Tablet, 10 MG PO DAILY, (Reported) Bisoprolol Fumarate (Bisoprolol Fumarate) 5 Mg Tablet, 5 MG PO DAILY, (Reported) Glimepiride (Glimepiride) 4 Mg Tablet, 4 MG PO BID, (Reported) Omeprazole (Omeprazole) 20 Mg Capsule.dr, 20 MG PO DAILY, (Reported) Potassium Chloride (Potassium Chloride) 10 Meq Tablet.er, 10 MEQ PO BID, (Reported) Sitagliptin Phosphate (Januvia) 100 Mg Tablet, 100 MG PO DAILY, (Reported) Scheduled PRN Acetaminophen with Codeine (Tylenol with Codeine #4 Tablet) 1 Tab Tab, 1 TAB PO Q8H PRN for PAIN, (Reported) Diphenoxylate HCl/Atropine (Lomotil 2.5-0.025 mg Tablet) 1 Tab Tab, 1 TAB PO Q4H PRN for DIARRHEA, (Reported) Ondansetron HCl (Zofran) 4 Mg Tab, 4 MG PO TID PRN for NAUSEA, (Reported) Oxycodone/Acetaminophen (Oxycodone-Acetaminophen 5-325) 1 Each Tablet, 1 TAB PO Q4HP PRN for MILD PAIN Oxymetazoline HCl (Oxymetazoline HCl) 30 Ml [place], 1 SPRAY NA BID PRN for NASAL CONGESTION, (Reported) Promethazine HCl (Promethazine HCl) 25 Mg Tablet, 25 MG PO Q6H PRN for NAUSEA, (Reported) Tadalafil (Cialis) 20 Mg Tab, 20 MG PO ASDIRECTED PRN for ERECTILE DYSFUNCTION, (Reported) Allergies Coded Allergies: No Known Drug Allergies (Verified Allergy, Unknown, 04/10/19) PEARL STODDARD MD April 14, 2019 11:46
== END 2019-04-14 10:58 | disposition home or self-care (01) | DRG 245 ==
LOC: M MSPAV 18:00
PROVIDERS: ADMIT Student in an Organized Health Care Education/Training Program; ATTEND Internal Medicine
DX: K50.912 Crohn's disease, unspecified, with intestinal obstruction (principal); I10 Essential (primary) hypertension; E11.9 Type 2 diabetes mellitus without complications; K21.9 Gastro-esophageal reflux disease without esophagitis; M54.5 Low back pain; Z79.899 Other long term (current) drug therapy; Z93.2 Ileostomy status; E87.6 Hypokalemia; N52.9 Male erectile dysfunction, unspecified

== ENCOUNTER 2020-03-11 15:52 | Inpatient (IN) | payer BC ==
[~2020-03-11] VITALS: Ht 172.7 cm; Wt 77.4 kg
[~2020-03-11 15:52] MED LIST changes: +ATOR1TAB19 PO; +BISO5TAB14 PO; +GLIM4TAB5 PO; +JANU100T PO; +OMEP1CAP73 PO; +PERCOCET PO; +POTA10TA14 PO; +PROM25TA12 PO; +PX N0.05
[2020-03-11] MEDS: HumaLOG INSULIN (NovoLOG) PER UNIT SC SCH ×2 (18:00→23:48)
--- NOTE | 2020-03-11 18:01 | HPEPDOC ---
General Date of Admission Date of Service: Mar 11, 2020 Chief Complaint The patient is a 64-year-old male admitted with a reason for visit of Small Bowel Obstruction, Acute Kidney Injury. Source: Patient, Old records Exam Limitations: No limitations Timing/Duration: 24 hours Severity: Moderate Associated Symptoms: Diaphoresis, Loss of appetite, Nausea History of Present Illness 64-year-old male with past medical history of Crohn's with consultation status post ileostomy 20+ years prior, multiple small bowel obstructions, CKD initially presented to [facility] for evaluation of likely small bowel obstruction. Patient reports that he has had dozens of small bowel obstruction the past. He has ileostomy that was created approximately 20+ years ago due to complications of Crohn's. He had a revision 5 years prior as well due to multiple SBO's prior to that. Since then, patient has had multiple small bowel obstructions. Presenting symptoms usually on increase in watery output from his ileostomy as well as worsening abdominal pain. Patient reports that the symptoms began at approximately noon yesterday and has steadily gotten worse. Pain is currently now a 7 out of 10 years after taking his home Tylenol for dose. She reports some nausea but no episodes of vomiting as of yet. He denies recent fevers, chills, shortness of breath, chest pain, leg swelling. Due to his worsening symptoms, patient decided to come to the ER for further evaluation. At [facility], CT scan was done which showed multiple dilated small loops of bowel consistent with possible SBO. Patient was transferred to [facility] for further evaluation and management given [facility] does not have an on-call surgeon at the facility. Dr. Aguilera of surgery, here was consulted and is aware of the patient. Home Medications Scheduled Amlodipine Besylate (Norvasc) 5 Mg Tab, 5 MG PO DAILY, (Reported) Atorvastatin Calcium (Atorvastatin Calcium) 10 Mg Tablet, 10 MG PO DAILY, (Reported) Bisoprolol Fumarate (Bisoprolol Fumarate) 5 Mg Tablet, 5 MG PO DAILY, (Reported) Glimepiride (Glimepiride) 4 Mg Tablet, 4 MG PO BID, (Reported) Omeprazole (Omeprazole) 20 Mg Capsule.dr, 20 MG PO DAILY, (Reported) Potassium Chloride (Potassium Chloride) 10 Meq Tablet.er, 10 MEQ PO BID, (Reported) Sitagliptin Phosphate (Januvia) 100 Mg Tablet, 100 MG PO DAILY, (Reported) Scheduled PRN Acetaminophen with Codeine (Tylenol with Codeine #4 Tablet) 1 Tab Tab, 1 TAB PO Q8H PRN for PAIN, (Reported) Diphenoxylate HCl/Atropine (Lomotil 2.5-0.025 mg Tablet) 1 Tab Tab, 1 TAB PO Q4H PRN for DIARRHEA, (Reported) Ondansetron HCl (Zofran) 4 Mg Tab, 4 MG PO TID PRN for NAUSEA, (Reported) Oxycodone/Acetaminophen (Oxycodone-Acetaminophen 5-325) 1 Each Tablet, 1 TAB PO Q4HP PRN for MILD PAIN Oxymetazoline HCl (Oxymetazoline HCl) 30 Ml [place], 1 SPRAY NA BID PRN for NASAL CONGESTION, (Reported) Promethazine HCl (Promethazine HCl) 25 Mg Tablet, 25 MG PO Q6H PRN for NAUSEA, (Reported) Tadalafil (Cialis) 20 Mg Tab, 20 MG PO ASDIRECTED PRN for ERECTILE DYSFUNCTION, (Reported) Allergies Coded Allergies: No Known Drug Allergies (Verified Allergy, Unknown, 04/10/19) Past Medical History Medical History 1. Crohn's disease status post ileostomy 2. GERD 3. Colitis 4. DM 5. HTN 6. Chronic back pain 7. MRSA negative 8. Diarrhea 9. Seasonal allergies 10. ED 11. Hypokalemia 12. DLP 13. Nausea Surgical History Surgical History 1. Total colectomy with end ileostomy and lysis of adhesions 2. Tonsillectomy 3. Uvula and partial palate excision 4. Septoplasty 5. Left inferior turbinate debridement 6. Esophageal dilatations x3 Family History Father: , 76, Alzheimer's disease Mother: , 86, old age Social History * Smoker: former Smoker Alcohol: rarely Drugs: denies Recent Travel/Sick Contacts: Denies: Recent travel, Recent sick contacts Psychosocial History: No pertinent psych hx Patient is to his of 32 years. Together they have 4 adult children who are all alive and healthy. 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 He used to smoke as a teenage and through college, but quit in his 20s. He consumes alcohol occasionally, usually 2-4 beers or mixed drinks. He does not use illicit drugs. A-FIB/CHADSVASC A-FIB History Current/History of A-Fib/PAF?: No Review of Systems Constitutional: Denies: Chills, Fever, Malaise, Fatigue Eyes: Denies: Pain, Vision change ENT: Denies: Head Aches, Ear Pain, Sore Throat Skin: Denies: Rash, Lesions Pulmonary: Denies: Dyspnea, Cough, Pleuritic Chest Pain Cardiovascular: Denies: Chest Pain, Palpitations, Edema, Lt Headedness Gastrointestinal: Reports: Nausea, Abdominal Pain (diffuse inconsistent with small bowel obstructions in the past), Diarrhea (watery output from ileostomy since last night); Denies: Vomiting Genitourinary: Denies: Dysuria Musculoskeletal: Denies: Back Pain, Joint Pain, Muscle Pain Neurological: Denies: Weakness, Numbness, Change in speech, Confusion Psych: Reports: Mood Normal Physical Examination General Exam: Positive: Alert, Cooperative, Mild Distress, Other (pleasant male who appears to be stated age. Appears to have some mild discomfort in his abdomen but otherwise is pleasant.) Eye Exam: Positive: PERRLA, Conjunctiva & lids normal, EOMI; Negative: Sclera icteric ENT Exam: Positive: Atraumatic, Mucous membr. moist/pink, Pharynx Normal Neck Exam: Positive: Supple; Negative: JVD, thyromegaly Chest Exam: Positive: Clear to auscultation, Normal air movement Heart Exam: Positive: Rate Normal, Regular Rhythm, Normal S1, Normal S2; Negative: Murmurs Abdomen Exam: Positive: BS Hypoactive, Soft, Tenderness (diffusely tender to palpation in all 4 quadrants.); Negative: Hepatospenomegaly Extremity Exam: Positive: Normal pulses; Negative: Cyanosis, Edema Skin Exam: Positive: Nl turgor and temperature Neuro Exam: Positive: Normal Gait, Normal Speech, Strength at 5/5 X4 ext, Normal Tone, Sensation Intact, Cranial Nerves 3-12 NL Psych Exam: Positive: Mental status NL, Mood NL Vital Signs to be done by staffing assistant Assessment/Plan 64-year-old male with past medical history of Crohn's disease status post ileostomy and multiple small bowel obstructions presents to [facility] for small bowel obstruction. Surgery consult has been called and is aware of patient. Given the patient has not been vomiting, we will hold off on NGT placement for now after discussion with surgery. Patient was placed on fluids will continue to monitor his status. Pain control to be given with Dilaudid. Plan / VTE VTE Prophylaxis Ordered?: Yes Plan Plan Abdominal pain secondary to small bowel obstruction Patient has had numerous episodes of small bowel obstruction the past likely due to multiple adhesions from his previous surgeries. Symptoms do not appear to be consistent with a Crohn's disease flare given his lab work from [facility]. - Strict nothing by mouth for now - No NGT placement unless patient begins to vomit - IV fluids with lactated Ringer's at 100 mL per hour - Zofran when necessary for nausea - Dilaudid 0.5 mg IVP when necessary for pain - Follow surgical recommendations - Serial abdominal exams. If patient worsens, stat imaging LUIS F on CKD Patient presents with a creatinine above his baseline. Likely due to dehydration. - Monitor BMP daily - Continue with IV fluids - Dose medications for reduced GFR - Avoid nephrotoxic medications Crohn's disease Review of records does not reveal any immunosuppressive agents at this time. Hypertension Patient noted to be on amlodipine, bisoprolol as home medications. - Hold off on by meds for now given SBO - Hydralazine IVP when necessary and transition to by mouth home meds when feasible Diabetes Patient on Januvia and glimepiride as per home med rec. Will hold for now - Insulin sliding scale - Hypoglycemic protocol - Fingersticks AC and HS while NPO IVF: Initiate Diet: Make NPO Activity: Continue Current Medications: Change to IV, Increase Pain Meds Diagnostics: Check Labs, Repeat Labs in AM Anticipated Discharge: Home SIA FRANZ MD Mar 11, 2020 18:01
[2020-03-11 18:07] VITALS: BP 137/78
[2020-03-11] MEDS: LR 1,000 ML IV SCH (18:28)
[2020-03-11 18:40] LABS: HEMATOCRIT 42.6 % (42.0-52.0); HEMOGLOBIN 15.1 g/dl (13.5-17.5); MEAN CORPUSCULAR HEMOGLOBIN 30.2 pg (27.0-33.0); MEAN CORPUSCULAR HGB CONC 35.4 g/dl (32.0-36.5); MEAN CORPUSCULAR VOLUME 85.2 fl (80.0-96.0); PLATELET COUNT, AUTOMATED 177 10^3/uL (150-450); WHITE BLOOD COUNT 9.2 10^3/uL (4.0-10.0)
[2020-03-11] MEDS ORDERED: GLUCAGON INJ 1MG VIAL SC PRN (18:45)
[2020-03-11] MEDS ORDERED: DEXTROSE 50% 50 ML SYRINGE IV PRN (18:45)
[2020-03-11] MEDS ORDERED: GLUCOSE 4GM CHEW TABLET PO PRN (18:45)
[2020-03-11] MEDS ORDERED: hydrALAZINE 20MG/ML 1ML VIAL (J0360 PER 20MG) IV PRN (18:45)
[2020-03-11] MEDS ORDERED: HYDROMORPHONE HCL 0.5 MG/ 0.5 ML SYRINGE (J1170 PER 1) IV PRN ×3 (18:45→19:00)
[2020-03-11] MEDS ORDERED: [UNRECOGNIZED DRUG - CODE] PO (18:56)
[2020-03-11] MEDS ORDERED: GLIM4TAB5 PO (18:56)
[2020-03-11] MEDS ORDERED: OXYC1TAB23 PO (19:01)
[2020-03-11] MEDS: HYDROMORPHONE HCL 0.5 MG/ 0.5 ML SYRINGE (J1170 PER 1) IV PRN ×2 (19:03→23:59)
[2020-03-11 19:04] LABS: ALBUMIN 3.8 GM/DL (3.2-5.2); BILIRUBIN,TOTAL 1.8 MG/DL (0.2-1.0); CREATININE FOR GFR 1.64 MG/DL (0.70-1.30); GLOMERULAR FILTRATION RATE 45.3 (>49); POTASSIUM SERUM 3.8 MEQ/L (3.5-5.1); TOTAL PROTEIN 8.1 GM/DL (6.4-8.2)
[2020-03-11] MEDS: HEPARIN SOD (PORCINE) 5000UNITS/ML VIAL (J1644 PER 1000UNITS) SQ SCH (20:25)
[2020-03-11 22:00] VITALS: BP 126/83
[2020-03-12] MEDS: HumaLOG INSULIN (NovoLOG) PER UNIT SC SCH ×3 (05:43→17:13)
[2020-03-12] MEDS: LR 1,000 ML IV SCH ×2 (05:43→14:01)
[2020-03-12 06:00] VITALS: BP 112/71
[2020-03-12 07:04] LABS: ALBUMIN 3.7 GM/DL (3.2-5.2); BILIRUBIN,TOTAL 2.2 MG/DL (0.2-1.0); CALCIUM LEVEL 8.9 MG/DL (8.8-10.2); CREATININE FOR GFR 1.34 MG/DL (0.70-1.30); GLOMERULAR FILTRATION RATE 57.1 (>49); POTASSIUM SERUM 4.1 MEQ/L (3.5-5.1); TOTAL PROTEIN 7.3 GM/DL (6.4-8.2)
[2020-03-12 07:05] LABS: HEMATOCRIT 44.3 % (42.0-52.0); HEMOGLOBIN 15.4 g/dl (13.5-17.5); MEAN CORPUSCULAR HEMOGLOBIN 30.4 pg (27.0-33.0); MEAN CORPUSCULAR HGB CONC 34.8 g/dl (32.0-36.5); MEAN CORPUSCULAR VOLUME 87.4 fl (80.0-96.0); PLATELET COUNT, AUTOMATED 175 10^3/uL (150-450); RED BLOOD COUNT 5.07 10^6/uL (4.30-6.10); WHITE BLOOD COUNT 7.5 10^3/uL (4.0-10.0)
[2020-03-12] MEDS: HEPARIN SOD (PORCINE) 5000UNITS/ML VIAL (J1644 PER 1000UNITS) SQ SCH ×2 (07:24→21:01)
[2020-03-12] MEDS: HYDROMORPHONE HCL 0.5 MG/ 0.5 ML SYRINGE (J1170 PER 1) IV PRN ×3 (07:26→23:22)
[2020-03-12] MEDS ORDERED: HumaLOG INSULIN (NovoLOG) PER UNIT SC SCH ×2 (07:30→21:00)
[2020-03-12] MEDS ORDERED: ENOXAPARIN 40MG/0.4ML SYRINGE (J1650 PER 10MG) SC SCH (09:00)
--- NOTE | 2020-03-12 10:52 | IPN ---
DATE OF SERVICE: 03/12/2020 The patient has had some good progress overnight. Has increased ostomy output. Has been afebrile. Has not had any nausea or vomiting. He had some minimal crampy abdominal pain, but his ostomy he says is putting out normal amounts this morning, and he still feels some pressure with some distention, but it is nothing compared to what it was previously. He has had no fevers or chills, as I stated. Intake and output (I and O) are not being recorded at this time, and his abdomen is softly distended, mildly tender but much less than yesterday, and his ostomy is putting out lots of liquid stool. IMPRESSION AND PLAN: The patient seems to be resolving clinically his partial obstruction; and at this point, it is reasonable to start him on a clear-liquid diet. If he tolerates this for 24 hours, then I would recommend increasing his diet and discharging him to home. He, unfortunately, has always had a colicky crampy abdominal pain that is hard to tell if it is ongoing obstructive issues or whether it is just his normal baseline; and thus, I would recommend going a little bit slower with him and thus going with clear liquids alone today. In any case, will see how he is doing; and if he is doing well in the morning, he should be able to be discharged to home.
--- NOTE | 2020-03-12 11:07 | CR ---
DATE OF CONSULTATION: 03/11/2020 The patient is admitted with another episode of small bowel obstruction. Imaging report states that the patient has some mildly dilated small bowel loops and was transferred from [facility] to this hospital. Essentially, his typical issue is that he has developed small bowel obstructions and it seems as though this is less associated with a Crohn's exacerbation. He has had a ileostomy for many years and has had multiple small bowel obstructions that are partial obstructions that sometimes go away on their own. However, this one was lasting for a few days giving him intense pain. He had decreased output out of his ostomy, mostly this was just watery output and his pain level was going up. Thus, he came in for dehydration and partial obstruction. He states mostly he has crampy abdominal pain. It is not as bad as it was in the middle of the night, and he states since he has been nothing by mouth getting IV fluids he has been better and he still had some minimal ostomy output. His past medical history is significant for history of Crohn disease, gastroesophageal (GE) reflux disease, colitis, diabetes mellitus, hypertension, chronic back pain, diarrhea, seasonal allergies, hypokalemia, DLP, erectile dysfunction (ED), nausea, total colectomy with end ileostomy and lysis of adhesions, tonsillectomy, uvula and partial palate excision, septoplasty, esophageal dilatations. Physical exam reveals a very talkative 64-year-old male who looks stated age. HEENT is unremarkable. Neck supple without adenopathy. Lungs are clear. Heart is regular. Abdomen is distended, mildly tender throughout without significant guarding, rebound or peritoneal signs. His ostomy is pink and there is some minimal output. IMPRESSION/PLAN: The patient has evidence of partial small bowel obstruction. At this point, he seems as though he is less symptomatic. Although, I do have concerns that he may not resolve completely and I would recommend that he be kept strictly nothing by mouth for right now, and more importantly, if he develops any crampy abdominal pain, nausea or vomiting that a nasogastric (NG) tube be placed to low intermittent suction. At this time, I am not seeing any urgent/emergent need for surgical intervention and he may not need NG tube decompression this time. We will have to see he does over the next 12 hours. If he does not have significant progression/improvement of output or resolution of his abdominal pain, then will get a followup x-ray and possibly place an NG tube. Otherwise, we will see what the next day brings.
--- NOTE | 2020-03-12 16:04 | IPN ---
DATE OF SERVICE: 03/12/2020 No complaints of nausea or vomiting. Currently nothing by mouth, on IV fluids. Anxious to eat something. No abdominal pain or distention. Improved distention currently with small output through the colostomy. Vitals: Temperature 97.8, pulse 81, respiratory rate 18, blood pressure 112/71, 97% on room air. Generally, the patient is awake, alert, oriented times three, answering questions appropriately. No cyanosis. No clubbing. No jugular venous distention (JVD). No thyromegaly. Lungs are clear to auscultation. No wheezing, rales or rhonchi. Heart: S1, S2, sinus rhythm. Abdomen is soft. Colostomy with some output, slightly distended. Positive bowel sounds. Extremities: No cyanosis, clubbing or pitting edema. ASSESSMENT AND PLAN: This is a 64-year-old male with history of Crohn disease followed at [facility], status post ileostomy, multiple small bowel obstructionsand chronic kidney disease (CKD) transferred from [facility] for possible partial bowel obstruction. CURRENT ISSUES: 1. Partial small bowel obstruction with history of Crohn disease status post ileostomy. The patient is doing much better with decreasing abdominal distention, output through his colostomy. The patient has been advanced on his diet from nothing by mouth status to clears for the next 24 hours, and then full liquids in the morning. If tolerates, may discharge in the morning. Continue with IV fluids until he takes solid oral diet. 2. Reflux, on proton pump inhibitor (PPI). 3. Diabetes, on hyperglycemic protocol, sliding scale and fingersticks before food and at bedtime. 4. Hypertension, controlled. 5. Acute kidney injury on CKD, stage III due to dehydration, currently still on IV fluids, improved. DISPOSITION: Discharge in the morning if tolerating clears and advanced by surgery to a consistent carbohydrate diet. [facility]
[2020-03-12 22:00] VITALS: BP 120/78
[2020-03-13] MEDS: LR 1,000 ML IV SCH ×2 (00:06→09:36)
[2020-03-13 06:00] VITALS: BP 129/79
[2020-03-13] MEDS: HYDROMORPHONE HCL 0.5 MG/ 0.5 ML SYRINGE (J1170 PER 1) IV PRN (06:07)
[2020-03-13] MEDS: HumaLOG INSULIN (NovoLOG) PER UNIT SC SCH ×2 (08:33→12:38)
[2020-03-13] MEDS: HEPARIN SOD (PORCINE) 5000UNITS/ML VIAL (J1644 PER 1000UNITS) SQ SCH (08:33)
--- NOTE | 2020-03-13 20:54 | DS.PDOC ---
Discharge Summary General Date of Admission Mar 11, 2020 at 18:00 Date of Discharge 03/13/20 Discharge Summary PROCEDURES PERFORMED DURING STAY: [None]. ADMITTING DIAGNOSES: Partial small bowel obstruction GERD Diabetes Hypertension Acute kidney injury on CKD DISCHARGE DIAGNOSES: Partial small bowel obstruction GERD Diabetes Hypertension Acute kidney injury on CKD COMPLICATIONS/CHIEF COMPLAINT: Small Bowel Obstruction, Acute Kidney Injury. HISTORY OF PRESENT ILLNESS:This is a 64-year-old male with history of Crohn disease followed at [facility], status post ileostomy, multiple small bowel obstructionsand chronic kidney disease (CKD) transferred from [facility] for possible partial bowel obstruction HOSPITAL COURSE: During hospital stay following issue addressed 1. Partial small bowel obstruction with history of Crohn disease status post ileostomy. The patient is doing much better with decreasing abdominal distention, output through his colostomy. The patient has been advanced on his diet from nothing by mouth status to clears for the next 24 hours, and then full liquids in the morning. Patient tolerates regular diet 2. Reflux, on proton pump inhibitor (PPI). 3. Diabetes, on hyperglycemic protocol, sliding scale and fingersticks before food and at bedtime. 4. Hypertension, controlled. 5. Acute kidney injury on CKD, stage III due to dehydration, currently still on IV fluids, improved. DISCHARGE MEDICATIONS: Please see below. ALLERGIES: Please see below. PHYSICAL EXAMINATION ON DISCHARGE: VITAL SIGNS: Please see below. Vitals: Temperature 97.8, pulse 81, respiratory rate 18, blood pressure 112/71, 97% on room air. Generally, the patient is awake, alert, oriented times three, answering questions appropriately. No cyanosis. No clubbing. No jugular venous distention (JVD). No thyromegaly. Lungs are clear to auscultation. No wheezing, rales or rhonchi. Heart: S1, S2, sinus rhythm. Abdomen is soft. Colostomy with some output, slightly distended. Positive bowel sounds. Extremities: No cyanosis, clubbing or pitting edema. LABORATORY DATA: Please see below. PROGNOSIS: Fair ACTIVITY: [As tolerated]. DIET: Diabetes DISPOSITION: 01 Home, Self-Care. 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 TIME SPENT ON DISCHARGE: Greater than 20 minutes. Vital Signs/I&Os Vital Signs Date Time Temp Pulse Resp B/P (MAP) Pulse Ox O2 Delivery O2 Flow Rate FiO2 03/13/20 06:17 17 Room Air 03/13/20 06:00 97.6 89 129/79 (96) 97 I&O- Last 24 Hours up to 6 AM 03/13/20 06:00 Intake Total 3520 ml Balance 3520 ml Laboratory Data Labs 24H Laboratory Tests 2 03/13/20 05:13: Bedside Glucose (Misc Panel) 203H 03/13/20 11:38: Bedside Glucose (Misc Panel) 214H FSBS Laboratory Tests Test 03/13/20 05:13 03/13/20 11:38 Range/Units Bedside Glucose (Misc Panel) 203 214 80-115 MG/DL Discharge Medications Scheduled Amlodipine Besylate (Norvasc) 5 Mg Tab, 5 MG PO DAILY, (Reported) Atorvastatin Calcium (Atorvastatin Calcium) 10 Mg Tablet, 10 MG PO DAILY, (Re ported) Bisoprolol Fumarate (Bisoprolol Fumarate) 5 Mg Tablet, 5 MG PO DAILY, (Reported) Glimepiride (Glimepiride) 4 Mg Tablet, 4 MG PO QPM, (Reported) TAKES 6MG IN THE MORNING AND 4 MG IN THE EVENING Glimepiride (Glimepiride) 4 Mg Tablet, 6 MG PO QAM, (Reported) TAKES 6 MG IN THE MORNING AND 4 MG IN THE EVENING Omeprazole (Omeprazole) 20 Mg Capsule.dr, 20 MG PO DAILY, (Reported) Potassium Chloride (Potassium Chloride) 10 Meq Tablet.er, 10 MEQ PO BID, (Reported) Sitagliptin Phosphate (Januvia) 100 Mg Tablet, 100 MG PO DAILY, (Reported) Scheduled PRN Acetaminophen with Codeine (Acetaminophen-Cod #4 Tablet) 1 Each Tablet, 1 TAB PO Q8H PRN for PAIN, (Reported) MDD 3 TABS Diphenoxylate HCl/Atropine (Lomotil 2.5-0.025 mg Tablet) 1 Tab Tab, 1 TAB PO Q4H PRN for DIARRHEA, (Reported) Ondansetron HCl (Zofran) 4 Mg Tab, 4 MG PO TID PRN for NAUSEA, (Reported) Oxycodone HCl/Acetaminophen (Oxycodone-Acetaminophen 5-325) 1 Each Tablet, 1 TAB PO Q4H PRN for PAIN, (Reported) MDD 6 TABS Oxymetazoline HCl (Oxymetazoline HCl) 30 Ml [place], 1 SPRAY NA BID PRN for NASAL CONGESTION, (Reported) Promethazine HCl (Promethazine HCl) 25 Mg Tablet, 25 MG PO Q6H PRN for NAUSEA, (Reported) Tadalafil (Cialis) 20 Mg Tab, 20 MG PO ASDIRECTED PRN for ERECTILE DYSFUNCTION, (Reported) Allergies Coded Allergies: No Known Drug Allergies (Verified Allergy, Unknown, 04/10/19) ASHLIE MOSELEY DO Mar 13, 2020 20:54
== END 2020-03-13 14:17 | disposition home or self-care (01) | DRG 247 ==
LOC: M MSPAV 18:00
PROVIDERS: ADMIT Internal Medicine Nephrology; ATTEND Internal Medicine
DX: K56.600 Partial intestinal obstruction, unspecified as to cause (principal); N17.9 Acute kidney failure, unspecified; N18.3 Chronic kidney disease, stage 3 (moderate); K50.90 Crohn's disease, unspecified, without complications; I12.9 Hypertensive chronic kidney disease with stage 1 through stage 4 chronic kidney disease, or unspecified chronic kidney disease; E11.9 Type 2 diabetes mellitus without complications; E86.0 Dehydration; Z79.899 Other long term (current) drug therapy; K21.9 Gastro-esophageal reflux disease without esophagitis; Z93.3 Colostomy status